=== PATIENT | female | born 1995 | race Caucasian/White ===

== ENCOUNTER → 2017-06-25 | Outpatient (CLI) | payer MEDICAID ==
--- NOTE | 2017-06-25 17:18 | RADRPT ---
PROCEDURE: OB Ultrasound. CLINICAL INDICATION: Positive test. Vaginal bleeding. TECHNIQUE: Ultrasound of the pelvis was performed with transabdominal and transvaginal sonography in the axial and sagittal planes. COMPARISON: No prior study is available for comparison. FINDINGS: There is a single intrauterine gestational sac. pole is present. There is no yolk sac. There is no heart motion. Corona-rump length is 1.15 cm. Mean sac diameter is 2.74 cm. Menstrual age by ultrasound dates is 7 weeks 4 days. The right ovary appears normal measuring 2.7 x 1.6 x 2.4 cm. The left ovary appears normal measuring 2.6 x 1.8 x 1.9 cm. Color Doppler and pulsed Doppler sonography demonstrate normal flow to the ovaries. There is no other pelvic mass or free fluid. IMPRESSION: 1. Failed at 7 weeks 4 days gestational age by ultrasound dates. RPTAT: QQ .Miguel Melara MD, MD Date Time Electronically viewed and signed by .Miguel Melara MD, on 06/25/2017 17:17 .R/
== END | disposition home or self-care (01) ==
LOC: U/S 13:09
PROVIDERS: ATTEND Registered Nurse Obstetric, Inpatient
DX: O02.1 Missed abortion (principal)
CPT/HCPCS: 76801; 76817

== ENCOUNTER → 2018-03-18 | Outpatient (CLI) | END | disposition home or self-care (01) ==